=== PATIENT | female | born 1955 | race Caucasian/White ===

== ENCOUNTER 2020-04-19 19:46 | Emergency (ER) | payer MEDICARE, OTHER ==
[~2020-04-19] VITALS: Ht 154.9 cm; Wt 102.3 kg
[~2020-04-19 19:46] MED LIST: BP MEDS
[2020-04-19 19:52] VITALS: BP 136/73
[2020-04-19] MEDS ORDERED: CEPH125S23 PO (19:58)
[2020-04-19] MEDS ORDERED: METO50 PO (19:58)
[2020-04-19] MEDS ORDERED: MELA3TAB82 PO (19:58)
[2020-04-19] MEDS ORDERED: PHEN37.599 PO (19:58)
[2020-04-19] MEDS ORDERED: IPRA6S NASAL (19:58)
[2020-04-19] MEDS ORDERED: AMLO5TAB9 PO (19:58)
[2020-04-19] MEDS ORDERED: UMEC1DIS IH (19:58)
[2020-04-19] MEDS ORDERED: METF-960 PO (19:58)
[2020-04-19] MEDS ORDERED: ZOLP10TA8 PO (19:58)
[2020-04-19] MEDS ORDERED: TICA90TA PO (19:58)
[2020-04-19] MEDS ORDERED: CLOP75TA3 PO (19:58)
[2020-04-19] MEDS ORDERED: ATOR40TA28 PO (19:58)
[2020-04-19] MEDS ORDERED: ASPI-728 PO (19:58)
[2020-04-19] MEDS ORDERED: BUDE0.255 NEB (19:58)
[2020-04-19] MEDS ORDERED: NICO-704 TD (19:58)
[2020-04-19] MEDS ORDERED: LOSA50TA37 PO (19:58)
[2020-04-19] MEDS ORDERED: NIZO2SH TP (19:58)
[2020-04-19] MEDS ORDERED: GABA-1181 PO (19:58)
[2020-04-19] MEDS ORDERED: VENL-193 PO (19:58)
[2020-04-19 23:10] LABS: APPEARANCE,URINE TURBID (CLEAR); BILIRUBIN,URINE NEGATIVE (NEGATIVE); GLUCOSE, URINE (UA) NEGATIVE (NEGATIVE); KETONES,URINE NEGATIVE (NEGATIVE); LEUKOCYTE ESTERASE ,URINE LARGE (NEGATIVE); NITRATE,URINE NEGATIVE (NEGATIVE); OCCULT BLOOD,URINE SMALL (NEGATIVE); PROTEIN,URINE SEE CONFIRM (NEGATIVE); UROBILINOGEN,URINE 0.2 mg/dL (<=1.0)
[2020-04-19 23:10] LABS: BASOPHILS % (AUTO) 0.4 % (0.0-2.0); EOSINOPHILS % (AUTO) 0.5 % (1.0-6.0); HEMATOCRIT 28.7 % (36-46); HEMOGLOBIN 8.8 g/dL (12.0-16.0); LYMPHOCYTES # (AUTO) 1.5 K/uL (1.0-4.8); LYMPHOCYTES % (AUTO) 17.3 % (22.0-44.0); MEAN CORPUSCULAR HGB CONC 30.6 G/dL (31.0-37.0); MEAN CORPUSCULAR VOLUME 75 fL (80-100); MONOCYTES # (AUTO) 0.8 K/uL (0.1-1.0); MONOCYTES % (AUTO) 9.3 % (2.0-9.0); NEUTROPHILS # (AUTO) 6.2 K/uL (1.8-7.7); NEUTROPHILS % (AUTO) 72.5 % (40.0-70.0); PLATELET COUNT (AUTO) 376 K/uL (150-450); RED BLOOD CELL COUNT(AUTO) 3.82 MIL/uL (4.00-5.20); RED CELL DISTRIBUTION WIDTH 20.5 % (11.5-14.5)
[2020-04-19 23:26] LABS: SULFOSALICYLIC ACID,URINE 4+ (Negative)
[2020-04-19 23:27] LABS: WBC,URINE >100 /HPF (0-5)
[2020-04-19 23:28] LABS: BACTERIA,URINE Few /HPF (None Seen); RBC,URINE 0-2 /HPF (0-2)
[2020-04-19 23:29] LABS: SQUAMOUS EPITHELIAL CELL,UR Few /LPF (None Seen)
[2020-04-19 23:52] LABS: CALCIUM, TOTAL 8.7 mg/dL (8.8-10.5); CREATININE 2.14 mg/dL (0.60-1.30); POTASSIUM 3.6 mmol/L (3.5-5.1)
[2020-04-19 23:58] LABS: ALBUMIN 3.5 g/dL (3.4-5.0); BILIRUBIN,TOTAL 0.2 mg/dL (0.1-1.0); TOTAL PROTEIN, SERUM 8.5 g/dL (6.4-8.2)
[2020-04-20] MEDS ORDERED: SODIUM CHLORIDE 0.9% 1,000 ML IV ONE (00:45)
== END 2020-04-20 00:48 | disposition left against medical advice (07) ==
LOC: EMS 19:47
DX: N39.0 Urinary tract infection, site not specified (principal); N12 Tubulo-interstitial nephritis, not specified as acute or chronic; E78.00 Pure hypercholesterolemia, unspecified; I10 Essential (primary) hypertension; Z79.84 Long term (current) use of oral hypoglycemic drugs; Z79.82 Long term (current) use of aspirin
CPT/HCPCS: 87086